=== PATIENT | male | born 1970 ===

== ENCOUNTER 2018-03-15 14:08 | Inpatient (IN) ==
[2018-03-15] MEDS ORDERED: traZODone 50 MG TABLET PO PRN (18:22)
[2018-03-15] MEDS ORDERED: DOCUSATE SODIUM 100 MG CAPSULE PO PRN (18:22)
[2018-03-15] MEDS ORDERED: ONDANSETRON 4 MG/2 ML VIAL IV PRN (18:22)
[2018-03-15] MEDS ORDERED: GLUCAGON 1 MG VIAL IM PRN (18:35)
[2018-03-15] MEDS: PIPERACILLIN/TAZOBACTAM 3,375 MG in SODIUM CHLORIDE 0.9% 100 ML IV SCH (18:42)
[2018-03-15 19:21] LABS: Basophils % 0.2 % (0.0-0.8); Eosinophils # 0.1 10*3/uL (0.0-0.87); Eosinophils % 0.2 % (0.00-10.9); Hemoglobin 10.1 GM/DL (14.0-18.0); Immature Granulocytes % 0.6 %; Immature Granulocytes Absolute 0.14 #; Lymphocytes # 1.9 10*3/uL (1.4-4.0); Lymphocytes % 8.6 % (21.2-54.2); Mean Corpuscular HGB Conc 33.7 GM/DL (32-36); Mean Corpuscular Hemoglobin 33 PG (27-34); Mean Corpuscular Volume 98.7 FL (87-102); Mean Platelet Volume 9.9 FL (9.6-12.0); Monocytes # 1.3 10*3/uL (0.11-0.8); Monocytes % 5.8 % (1.7-12.7); Neutrophils # 18.5 10*3/uL (1.4-7.4); Neutrophils % 84.6 % (38.7-73.9); Platelet Count 241 T/CUMM (130-400); Red Blood Count 3.04 MC/CUMM (3.8-5.5); Red Cell Distribution Width 11.8 % (9.3-17.3); White Blood Count 21.9 T/CUMM (4-12)
[2018-03-15 19:32] LABS: Calcium 8.3 MG/DL (8.5-10.1); Osmolality,Calculated 278.1 MOS/KG (273-304); Potassium 4.3 MMOL/L (3.5-5.1)
[2018-03-15 19:50] LABS: Lymphocytes 8 % (20-55); Platelet Estimate Normal; Segmented Neutrophils 91 % (50-85); Total Cells Counted 100
[2018-03-15 19:57] LABS: Hypochromasia Slight; Macrocytosis Slight
[2018-03-15] MEDS: INSULIN LISPRO 100 UNIT/ML SUBCUT SCH (20:44)
[2018-03-15] MEDS: ENOXAPARIN 40 MG/0.4 ML SYRINGE SUBCUT SCH (20:45)
[2018-03-15] MEDS: VANCOMYCIN INJ 1,500 MG in SODIUM CHLORIDE 0.9% 500 ML IV SCH (23:26)
[2018-03-16] MEDS: PIPERACILLIN/TAZOBACTAM 3,375 MG in SODIUM CHLORIDE 0.9% 100 ML IV SCH ×3 (02:00→18:33)
[2018-03-16 05:18] LABS: Basophils % 0.2 % (0.0-0.8); Eosinophils # 0.1 10*3/uL (0.0-0.87); Eosinophils % 0.7 % (0.00-10.9); Hemoglobin 8.4 GM/DL (14.0-18.0); Immature Granulocytes % 0.8 %; Immature Granulocytes Absolute 0.14 #; Lymphocytes # 1.9 10*3/uL (1.4-4.0); Lymphocytes % 10.4 % (21.2-54.2); Mean Corpuscular HGB Conc 33.6 GM/DL (32-36); Mean Corpuscular Hemoglobin 33 PG (27-34); Mean Corpuscular Volume 97.3 FL (87-102); Mean Platelet Volume 10.3 FL (9.6-12.0); Monocytes # 1.3 10*3/uL (0.11-0.8); Neutrophils # 14.8 10*3/uL (1.4-7.4); Neutrophils % 80.9 % (38.7-73.9); Platelet Count 196 T/CUMM (130-400); Red Blood Count 2.57 MC/CUMM (3.8-5.5); Red Cell Distribution Width 11.7 % (9.3-17.3); White Blood Count 18.3 T/CUMM (4-12)
[2018-03-16 05:52] LABS: Albumin 1.9 G/DL (3.4-5.0); Calcium 7.8 MG/DL (8.5-10.1); Osmolality,Calculated 280.8 MOS/KG (273-304); Potassium 3.9 MMOL/L (3.5-5.1); Thyroid Stimulating Hormone 1.46 uIU/ml (0.358-3.74); Total Protein 6.7 G/DL (6.4-8.3)
[2018-03-16] MEDS: INSULIN LISPRO 100 UNIT/ML SUBCUT SCH ×4 (09:22→20:26)
[2018-03-16] MEDS ORDERED: LIDOCAINE 1% 20 ML VIAL ONE (10:41)
[2018-03-16] MEDS ORDERED: MICROFIBRILLAR COLLAGEN POWDER 1 GM CAN TOP ONE (11:10)
[2018-03-16] MEDS ORDERED: MIDAZOLAM 2 MG/2 ML VIAL ONE (11:31)
[2018-03-16] MEDS: VANCOMYCIN INJ 1,500 MG in SODIUM CHLORIDE 0.9% 500 ML IV SCH ×2 (12:12→22:33)
[2018-03-16] MEDS: ASPIRIN EC 81 MG TABLET PO SCH (16:11)
[2018-03-16] MEDS: LISINOPRIL 10 MG TABLET PO SCH (16:11)
[2018-03-16] MEDS: metFORMIN 500 MG TABLET PO SCH (16:11)
[2018-03-16] MEDS: hydrALAZINE 20 MG/1 ML VIAL IV PRN (16:12)
[2018-03-16] MEDS: SIMVASTATIN 10 MG TABLET PO SCH (20:26)
[2018-03-16] MEDS: ENOXAPARIN 40 MG/0.4 ML SYRINGE SUBCUT SCH (20:27)
[2018-03-17] MEDS: PIPERACILLIN/TAZOBACTAM 3,375 MG in SODIUM CHLORIDE 0.9% 100 ML IV SCH ×3 (03:13→18:29)
[2018-03-17] MEDS: INSULIN LISPRO 100 UNIT/ML SUBCUT SCH ×4 (07:53→20:49)
[2018-03-17] MEDS: metFORMIN 500 MG TABLET PO SCH ×2 (08:11→17:28)
[2018-03-17] MEDS: LISINOPRIL 10 MG TABLET PO SCH (08:11)
[2018-03-17] MEDS: ASPIRIN EC 81 MG TABLET PO SCH (08:11)
[2018-03-17] MEDS: VANCOMYCIN INJ 1,500 MG in SODIUM CHLORIDE 0.9% 500 ML IV SCH (11:44)
[2018-03-17] MEDS: SIMVASTATIN 10 MG TABLET PO SCH (20:49)
[2018-03-17] MEDS: ENOXAPARIN 40 MG/0.4 ML SYRINGE SUBCUT SCH (20:49)
[2018-03-18] MEDS: VANCOMYCIN INJ 1,500 MG in SODIUM CHLORIDE 0.9% 500 ML IV SCH ×2 (00:06→11:29)
[2018-03-18] MEDS: hydrALAZINE 20 MG/1 ML VIAL IV PRN (00:44)
[2018-03-18] MEDS: PIPERACILLIN/TAZOBACTAM 3,375 MG in SODIUM CHLORIDE 0.9% 100 ML IV SCH ×3 (03:15→18:19)
[2018-03-18] MEDS: LISINOPRIL 10 MG TABLET PO SCH (08:10)
[2018-03-18] MEDS: INSULIN LISPRO 100 UNIT/ML SUBCUT SCH ×4 (08:11→20:58)
[2018-03-18] MEDS: ASPIRIN EC 81 MG TABLET PO SCH (08:11)
[2018-03-18] MEDS: metFORMIN 500 MG TABLET PO SCH ×2 (08:11→17:24)
[2018-03-18] MEDS: ENOXAPARIN 40 MG/0.4 ML SYRINGE SUBCUT SCH (20:56)
[2018-03-18] MEDS: SIMVASTATIN 10 MG TABLET PO SCH (20:59)
[2018-03-19] MEDS: PIPERACILLIN/TAZOBACTAM 3,375 MG in SODIUM CHLORIDE 0.9% 100 ML IV SCH ×3 (02:26→23:45)
[2018-03-19 06:23] LABS: Calcium 7.8 MG/DL (8.5-10.1); Osmolality,Calculated 280.3 MOS/KG (273-304); Potassium 3.6 MMOL/L (3.5-5.1)
[2018-03-19] MEDS: INSULIN LISPRO 100 UNIT/ML SUBCUT SCH ×4 (07:43→22:12)
[2018-03-19] MEDS: metFORMIN 500 MG TABLET PO SCH ×2 (07:44→17:55)
[2018-03-19] MEDS: LISINOPRIL 10 MG TABLET PO SCH (09:37)
[2018-03-19] MEDS: ASPIRIN EC 81 MG TABLET PO SCH (09:40)
[2018-03-19] MEDS ORDERED: DEXTROSE 50% 25 GM/50 ML VIAL IV ONE ×2 (10:25→10:27)
[2018-03-19] MEDS ORDERED: LIDOCAINE 1% 20 ML VIAL ONE (10:46)
[2018-03-19] MEDS ORDERED: PROPOFOL 200 MG/20 ML VIAL IV ONE (11:09)
[2018-03-19] MEDS ORDERED: MIDAZOLAM 2 MG/2 ML VIAL ONE (11:10)
[2018-03-19] MEDS: ENOXAPARIN 40 MG/0.4 ML SYRINGE SUBCUT SCH (22:11)
[2018-03-19] MEDS: SIMVASTATIN 10 MG TABLET PO SCH (22:12)
[2018-03-20] MEDS: PIPERACILLIN/TAZOBACTAM 3,375 MG in SODIUM CHLORIDE 0.9% 100 ML IV SCH ×3 (06:15→22:40)
[2018-03-20] MEDS: metFORMIN 500 MG TABLET PO SCH ×2 (08:38→18:52)
[2018-03-20] MEDS: INSULIN LISPRO 100 UNIT/ML SUBCUT SCH ×4 (08:38→21:20)
[2018-03-20] MEDS: ASPIRIN EC 81 MG TABLET PO SCH (08:39)
[2018-03-20] MEDS: LISINOPRIL 10 MG TABLET PO SCH (08:39)
[2018-03-20] MEDS: SIMVASTATIN 10 MG TABLET PO SCH (21:18)
[2018-03-20] MEDS: ENOXAPARIN 40 MG/0.4 ML SYRINGE SUBCUT SCH (21:20)
[2018-03-21] MEDS: PIPERACILLIN/TAZOBACTAM 3,375 MG in SODIUM CHLORIDE 0.9% 100 ML IV SCH (05:40)
[2018-03-21] MEDS: INSULIN LISPRO 100 UNIT/ML SUBCUT SCH ×4 (07:31→20:13)
[2018-03-21] MEDS: LISINOPRIL 10 MG TABLET PO SCH (08:56)
[2018-03-21] MEDS: metFORMIN 500 MG TABLET PO SCH ×2 (08:56→18:42)
[2018-03-21] MEDS: ASPIRIN EC 81 MG TABLET PO SCH (08:56)
[2018-03-21] MEDS: LEVOFLOXACIN INJ 500 MG in PREMIX 1 EACH IV SCH (11:14)
[2018-03-21] MEDS: SIMVASTATIN 10 MG TABLET PO SCH (20:31)
[2018-03-21] MEDS: ENOXAPARIN 40 MG/0.4 ML SYRINGE SUBCUT SCH (20:31)
[2018-03-21] MEDS: hydrALAZINE 20 MG/1 ML VIAL IV PRN (20:32)
[2018-03-22 06:45] LABS: Basophils % 0.4 % (0.0-0.8); Eosinophils # 0.3 10*3/uL (0.0-0.87); Eosinophils % 2.6 % (0.00-10.9); Hematocrit 26.5 VOL% (42.0-52.0); Hemoglobin 8.7 GM/DL (14.0-18.0); Immature Granulocytes % 0.8 %; Immature Granulocytes Absolute 0.09 #; Lymphocytes # 2.1 10*3/uL (1.4-4.0); Lymphocytes % 19.8 % (21.2-54.2); Mean Corpuscular HGB Conc 32.8 GM/DL (32-36); Mean Corpuscular Hemoglobin 32 PG (27-34); Mean Corpuscular Volume 97.8 FL (87-102); Mean Platelet Volume 10.3 FL (9.6-12.0); Monocytes # 0.5 10*3/uL (0.11-0.8); Monocytes % 4.9 % (1.7-12.7); Neutrophils # 7.6 10*3/uL (1.4-7.4); Neutrophils % 71.5 % (38.7-73.9); Platelet Count 299 T/CUMM (130-400); Red Blood Count 2.71 MC/CUMM (3.8-5.5); Red Cell Distribution Width 11.9 % (9.3-17.3); White Blood Count 10.6 T/CUMM (4-12)
[2018-03-22 07:10] LABS: Calcium 7.8 MG/DL (8.5-10.1); Osmolality,Calculated 282.3 MOS/KG (273-304); Potassium 3.7 MMOL/L (3.5-5.1)
[2018-03-22] MEDS: INSULIN LISPRO 100 UNIT/ML SUBCUT SCH ×4 (07:41→21:00)
[2018-03-22] MEDS: ASPIRIN EC 81 MG TABLET PO SCH (08:58)
[2018-03-22] MEDS: metFORMIN 500 MG TABLET PO SCH ×2 (09:00→18:01)
[2018-03-22] MEDS: LISINOPRIL 10 MG TABLET PO SCH (09:24)
[2018-03-22] MEDS: LEVOFLOXACIN INJ 500 MG in PREMIX 1 EACH IV SCH (11:10)
[2018-03-22] MEDS: DEXTROSE 50% 25 GM/50 ML SYRINGE IV PRN (16:38)
[2018-03-22] MEDS ORDERED: LIDOCAINE 1% 20 ML VIAL ONE (19:20)
[2018-03-22] MEDS ORDERED: PROPOFOL 200 MG/20 ML VIAL IV ONE (20:10)
[2018-03-22] MEDS ORDERED: fentaNYL 100 MCG/2 ML VIAL ONE (20:11)
[2018-03-22] MEDS ORDERED: SEVOFLURANE 1 UNIT/15 MINUTE INH ONE (20:11)
[2018-03-22] MEDS ORDERED: ONDANSETRON 4 MG/2 ML VIAL ONE (20:11)
[2018-03-22] MEDS ORDERED: MIDAZOLAM 2 MG/2 ML VIAL ONE (20:11)
[2018-03-22] MEDS ORDERED: ONDANSETRON 4 MG/2 ML VIAL IV PRN (20:16)
[2018-03-22] MEDS ORDERED: MEPERIDINE 25 MG/1 ML VIAL IV PRN (20:16)
[2018-03-22] MEDS: SIMVASTATIN 10 MG TABLET PO SCH (21:03)
[2018-03-22] MEDS: ENOXAPARIN 40 MG/0.4 ML SYRINGE SUBCUT SCH (21:04)
[2018-03-22] MEDS: MORPHINE 4 MG/1 ML VIAL IV PRN (22:33)
[2018-03-23] MEDS: MORPHINE 4 MG/1 ML VIAL IV PRN ×3 (02:35→20:06)
[2018-03-23] MEDS: ASPIRIN EC 81 MG TABLET PO SCH (08:44)
[2018-03-23] MEDS: LISINOPRIL 10 MG TABLET PO SCH (08:44)
[2018-03-23] MEDS: metFORMIN 500 MG TABLET PO SCH ×2 (08:44→17:10)
[2018-03-23] MEDS: INSULIN LISPRO 100 UNIT/ML SUBCUT SCH ×4 (10:29→20:02)
[2018-03-23] MEDS: LEVOFLOXACIN INJ 500 MG in PREMIX 1 EACH IV SCH (11:25)
[2018-03-23] MEDS: SIMVASTATIN 10 MG TABLET PO SCH (20:06)
[2018-03-23] MEDS: ENOXAPARIN 40 MG/0.4 ML SYRINGE SUBCUT SCH (20:06)
[2018-03-24] MEDS: hydrALAZINE 20 MG/1 ML VIAL IV PRN (04:48)
[2018-03-24] MEDS: DEXTROSE 50% 25 GM/50 ML SYRINGE IV PRN (08:04)
[2018-03-24] MEDS: INSULIN LISPRO 100 UNIT/ML SUBCUT SCH ×4 (08:15→21:18)
[2018-03-24] MEDS: ASPIRIN EC 81 MG TABLET PO SCH (08:16)
[2018-03-24] MEDS: LISINOPRIL 10 MG TABLET PO SCH (08:16)
[2018-03-24] MEDS: metFORMIN 500 MG TABLET PO SCH ×2 (08:16→18:20)
[2018-03-24] MEDS: LEVOFLOXACIN INJ 500 MG in PREMIX 1 EACH IV SCH (12:00)
[2018-03-24] MEDS ORDERED: LIDOCAINE 1% 20 ML VIAL ONE (12:32)
[2018-03-24] MEDS ORDERED: fentaNYL 100 MCG/2 ML VIAL ONE (13:57)
[2018-03-24] MEDS ORDERED: PROPOFOL 200 MG/20 ML VIAL IV ONE (13:57)
[2018-03-24] MEDS ORDERED: SEVOFLURANE 1 UNIT/15 MINUTE INH ONE (13:57)
[2018-03-24] MEDS ORDERED: ONDANSETRON 4 MG/2 ML VIAL ONE (13:58)
[2018-03-24] MEDS ORDERED: PHENYLEPHRINE 1 MG/10 ML SYRINGE IV ONE (13:58)
[2018-03-24] MEDS ORDERED: MIDAZOLAM 2 MG/2 ML VIAL ONE (13:58)
[2018-03-24] MEDS: MORPHINE 4 MG/1 ML VIAL IV PRN (17:12)
[2018-03-24] MEDS: ENOXAPARIN 40 MG/0.4 ML SYRINGE SUBCUT SCH (21:18)
[2018-03-24] MEDS: SIMVASTATIN 10 MG TABLET PO SCH (21:18)
[2018-03-25] MEDS: INSULIN LISPRO 100 UNIT/ML SUBCUT SCH ×4 (08:00→20:50)
[2018-03-25] MEDS: metFORMIN 500 MG TABLET PO SCH ×2 (09:00→19:32)
[2018-03-25] MEDS: LISINOPRIL 10 MG TABLET PO SCH (09:44)
[2018-03-25] MEDS: ASPIRIN EC 81 MG TABLET PO SCH (09:44)
[2018-03-25] MEDS: LEVOFLOXACIN INJ 500 MG in PREMIX 1 EACH IV SCH (12:24)
[2018-03-25] MEDS: PENICILLIN G POTASSIUM INJ 4,000,000 UNIT in SODIUM CHLORIDE 0.9% 100 ML IV SCH ×2 (19:31→20:56)
[2018-03-25] MEDS: CLINDAMYCIN INJ 900 MG in PREMIX 1 EACH IV SCH ×2 (19:31→23:25)
[2018-03-25] MEDS: ATORVASTATIN 10 MG TABLET PO SCH (20:48)
[2018-03-25] MEDS: ENOXAPARIN 40 MG/0.4 ML SYRINGE SUBCUT SCH (20:48)
[2018-03-26] MEDS: PENICILLIN G POTASSIUM INJ 4,000,000 UNIT in SODIUM CHLORIDE 0.9% 100 ML IV SCH ×6 (00:08→21:50)
[2018-03-26] MEDS: CLINDAMYCIN INJ 900 MG in PREMIX 1 EACH IV SCH ×4 (05:01→22:55)
[2018-03-26 06:05] LABS: Basophils % 0.4 % (0.0-0.8); Eosinophils # 0.2 10*3/uL (0.0-0.87); Eosinophils % 2.5 % (0.00-10.9); Hematocrit 24.5 VOL% (42.0-52.0); Hemoglobin 8.2 GM/DL (14.0-18.0); Immature Granulocytes Absolute 0.09 #; Lymphocytes # 2.2 10*3/uL (1.4-4.0); Mean Corpuscular HGB Conc 33.5 GM/DL (32-36); Mean Corpuscular Hemoglobin 33 PG (27-34); Mean Corpuscular Volume 98.4 FL (87-102); Monocytes # 0.5 10*3/uL (0.11-0.8); Monocytes % 5.6 % (1.7-12.7); Neutrophils # 6.1 10*3/uL (1.4-7.4); Neutrophils % 66.5 % (38.7-73.9); Platelet Count 282 T/CUMM (130-400); Red Blood Count 2.49 MC/CUMM (3.8-5.5); Red Cell Distribution Width 12.3 % (9.3-17.3); White Blood Count 9.2 T/CUMM (4-12)
[2018-03-26 06:15] LABS: Osmolality,Calculated 280.3 MOS/KG (273-304); Potassium 4.1 MMOL/L (3.5-5.1)
[2018-03-26] MEDS: INSULIN LISPRO 100 UNIT/ML SUBCUT SCH ×4 (09:28→21:54)
[2018-03-26] MEDS: LISINOPRIL 10 MG TABLET PO SCH (09:28)
[2018-03-26] MEDS: metFORMIN 500 MG TABLET PO SCH ×2 (09:29→16:21)
[2018-03-26] MEDS: ASPIRIN EC 81 MG TABLET PO SCH (09:29)
[2018-03-26] MEDS: LEVOFLOXACIN INJ 500 MG in PREMIX 1 EACH IV SCH (10:54)
[2018-03-26] MEDS: ENOXAPARIN 40 MG/0.4 ML SYRINGE SUBCUT SCH (21:52)
[2018-03-26] MEDS: ATORVASTATIN 10 MG TABLET PO SCH (21:52)
[2018-03-27] MEDS: PENICILLIN G POTASSIUM INJ 4,000,000 UNIT in SODIUM CHLORIDE 0.9% 100 ML IV SCH ×3 (00:54→08:56)
[2018-03-27] MEDS: CLINDAMYCIN INJ 900 MG in PREMIX 1 EACH IV SCH (07:05)
[2018-03-27] MEDS: ASPIRIN EC 81 MG TABLET PO SCH (08:56)
[2018-03-27] MEDS: LISINOPRIL 10 MG TABLET PO SCH (08:56)
[2018-03-27] MEDS: metFORMIN 500 MG TABLET PO SCH ×2 (08:56→18:04)
[2018-03-27] MEDS: INSULIN LISPRO 100 UNIT/ML SUBCUT SCH ×3 (08:59→16:23)
[2018-03-27] MEDS: LEVOFLOXACIN INJ 500 MG in PREMIX 1 EACH IV SCH (12:01)
[2018-03-27 16:32] VITALS: BP 115/72
== END 2018-03-27 18:00 | disposition home health service (06) | DRG 239 ==
LOC: SUATTDRO 16:17 → N.3E 16:17
PROVIDERS: ADMIT Internal Medicine; ATTEND Internal Medicine

== ENCOUNTER 2019-10-08 18:55 | Inpatient (IN) ==
[2019-10-08] MEDS ORDERED: PIPERACILLIN/TAZOBACTAM 3,375 MG in SODIUM CHLORIDE 0.9% 100 ML IV STA (20:51)
[2019-10-08 21:05] LABS: Basophils # 0.1 10*3/uL (0.0-0.2); Basophils % 0.4 % (0.0-0.8); Eosinophils # 1.3 10*3/uL (0.0-0.87); Hematocrit 36.2 VOL% (42.0-52.0); Hemoglobin 12.4 GM/DL (14.0-18.0); Immature Granulocytes % 0.3 %; Immature Granulocytes Absolute 0.03 #; Lymphocytes # 1.8 10*3/uL (1.4-4.0); Lymphocytes % 15.1 % (21.2-54.2); Mean Corpuscular HGB Conc 34.3 GM/DL (32-36); Mean Corpuscular Volume 98.9 FL (87-102); Mean Platelet Volume 10.7 FL (9.6-12.0); Monocytes % 5.4 % (1.7-12.7); Neutrophils % 67.8 % (38.7-73.9); Platelet Count 179 T/CUMM (130-400); Red Blood Count 3.66 MC/CUMM (3.8-5.5); Red Cell Distribution Width 13.1 % (9.3-17.3)
[2019-10-08] MEDS ORDERED: PIPERACILLIN/TAZOBACTAM 3,375 MG VIAL IV ONE (21:24)
[2019-10-08 21:29] LABS: Albumin 2.1 G/DL (3.4-5.0); Bilirubin,Total 0.4 MG/DL (0.2-1.0); Calcium 7.6 MG/DL (8.5-10.1); Osmolality,Calculated 293.1 MOS/KG (273-304); Total Protein 6.6 G/DL (6.4-8.3)
[2019-10-08 21:58] LABS: Eosinophils 18 % (0-10); Lymphocytes 11 % (20-55); Platelet Estimate Normal; Segmented Neutrophils 71 % (50-85); Total Cells Counted 100
[2019-10-08] MEDS ORDERED: ONDANSETRON 4 MG/2 ML VIAL IV PRN (22:12)
[2019-10-08] MEDS ORDERED: PIPERACILLIN/TAZOBACTAM 3,375 MG in SODIUM CHLORIDE 0.9% 100 ML IV SCH (22:12)
[2019-10-08] MEDS ORDERED: ACETAMINOPHEN 325 MG TABLET PO PRN (22:12)
[2019-10-08] MEDS ORDERED: VANCOMYCIN INJ 1,500 MG in SODIUM CHLORIDE 0.9% 500 ML IV PRN (22:25)
[2019-10-08] MEDS: LACTATED RINGERS 1,000 ML IV SCH (22:55)
[2019-10-08] MEDS: PANTOPRAZOLE 40 MG TABLET PO SCH (22:55)
[2019-10-09] MEDS ORDERED: VANCOMYCIN INJ 2,500 MG in SODIUM CHLORIDE 0.9% 500 ML IV ONE (02:00)
[2019-10-09] MEDS: PIPERACILLIN/TAZOBACTAM 3,375 MG in SODIUM CHLORIDE 0.9% 100 ML IV SCH ×3 (04:17→18:38)
[2019-10-09 07:50] LABS: Calcium 7.8 MG/DL (8.5-10.1)
[2019-10-09] MEDS: PANTOPRAZOLE 40 MG TABLET PO SCH (09:06)
[2019-10-09] MEDS ORDERED: LIDOCAINE 1% 20 ML VIAL ONE (10:00)
[2019-10-09] MEDS ORDERED: LIDOCAINE 2% 5 ML VIAL ONE (11:05)
[2019-10-09] MEDS ORDERED: propofoL 200 MG/20 ML VIAL IV ONE (11:05)
[2019-10-09] MEDS ORDERED: MIDAZOLAM 2 MG/2 ML VIAL ONE (11:06)
[2019-10-09] MEDS ORDERED: fentaNYL 100 MCG/2 ML VIAL ONE (11:06)
[2019-10-09] MEDS ORDERED: DEXMEDETOMIDINE 200 MCG/2 ML VIAL ONE (11:06)
[2019-10-09] MEDS: LACTATED RINGERS 1,000 ML IV SCH ×2 (11:43→17:41)
[2019-10-09] MEDS ORDERED: VANCOMYCIN INJ 2,000 MG in SODIUM CHLORIDE 0.9% 500 ML IV SCH (20:00)
[2019-10-10] MEDS: PIPERACILLIN/TAZOBACTAM 3,375 MG in SODIUM CHLORIDE 0.9% 100 ML IV SCH (03:18)
[2019-10-10] MEDS: PANTOPRAZOLE 40 MG TABLET PO SCH (11:48)
[2019-10-10 20:05] VITALS: BP 168/105
== END 2019-10-10 14:33 | disposition home or self-care (01) | DRG 617 ==
LOC: N.ED 18:55 → N.EDINP 21:01 → N.3E 22:00
PROVIDERS: ADMIT Surgery; ATTEND Surgery

== ENCOUNTER 2021-04-25 11:27 | Inpatient (IN) ==
[2021-04-25] MEDS ORDERED: ACETAMINOPHEN 325 MG TABLET PO PRN (12:07)
[2021-04-25] MEDS ORDERED: BISACODYL 5 MG TABLET PO PRN (12:07)
[2021-04-25] MEDS ORDERED: DEXTROSE 50% 25 GM/50 ML VIAL IV PRN (12:10)
[2021-04-25] MEDS ORDERED: GLUCAGON 1 MG VIAL IM PRN (12:10)
[2021-04-25 14:59] LABS: Basophils % 0.4 % (0.0-0.8); Eosinophils # 0.2 10*3/uL (0.0-0.87); Eosinophils % 2.3 % (0.00-10.9); Hematocrit 27.5 VOL% (42.0-52.0); Hemoglobin 9.1 GM/DL (14.0-18.0); Immature Granulocytes % 0.6 %; Immature Granulocytes Absolute 0.05 #; Lymphocytes # 1.8 10*3/uL (1.4-4.0); Lymphocytes % 21.2 % (21.2-54.2); Mean Corpuscular HGB Conc 33.1 GM/DL (32-36); Mean Corpuscular Volume 97.2 FL (87-102); Mean Platelet Volume 11.1 FL (9.6-12.0); Monocytes % 5.5 % (1.7-12.7); Platelet Count 110 T/CUMM (130-400); Red Blood Count 2.83 MC/CUMM (3.8-5.5); Red Cell Distribution Width 13.7 % (9.3-17.3); White Blood Count 8.3 T/CUMM (4-12)
[2021-04-25 15:24] LABS: % Iron Saturation 47.9 % (18-50); Ferritin 262.9 ng/mL (26-388)
[2021-04-25 15:37] LABS: Albumin 3.4 G/DL (3.4-5.0); Calcium 7.9 MG/DL (8.5-10.1); Osmolality,Calculated 338.4 MOS/KG (273-304); Potassium 4.6 MMOL/L (3.5-5.1)
[2021-04-25 15:57] LABS: Hepatitis B Core IgM Quant 0.15 Index; Hepatitis B Surface Ag Quant 0.84 Index; Hepatitis B Surface Ag Result Non-Reactive (NonReactive); Hepatitis C Virus Ab Quant 0.15 Index; Hepatitis C Virus Ab Result Non-Reactive (NonReactive)
[2021-04-25] MEDS: INSULIN LISPRO 100 UNIT/ML SUBCUT SCH (16:39)
[2021-04-26] MEDS: ONDANSETRON 4 MG/2 ML VIAL IV PRN (04:45)
[2021-04-26] MEDS ORDERED: propofoL 200 MG/20 ML VIAL IV ONE (08:31)
[2021-04-26] MEDS ORDERED: fentaNYL 100 MCG/2 ML VIAL ONE (08:31)
[2021-04-26] MEDS ORDERED: LIDOCAINE 2% 5 ML VIAL ONE (08:31)
[2021-04-26] MEDS ORDERED: MIDAZOLAM 2 MG/2 ML VIAL ONE (08:31)
[2021-04-26] MEDS ORDERED: LIDOCAINE 1%/EPI INJ 20 ML VIAL ONE (08:35)
[2021-04-26] MEDS ORDERED: BUPIVACAINE MPF 0.25% 30 ML VIAL ONE (08:35)
[2021-04-26] MEDS ORDERED: HEPARIN 5,000 UNIT/1 ML VIAL ONE ×2 (08:35→08:46)
[2021-04-26] MEDS ORDERED: SODIUM CHLORIDE 0.9% 250 ML IV SCH (09:30)
[2021-04-26] MEDS ORDERED: PHENYLEPHRINE 1 MG/10 ML SYRINGE IV ONE (09:49)
[2021-04-26] MEDS ORDERED: EPOETIN ALFA-EPBX 4,000 UNIT/ML VIAL IV PRN (10:17)
[2021-04-26] MEDS: INSULIN LISPRO 100 UNIT/ML SUBCUT SCH ×2 (10:29→17:33)
[2021-04-26] MEDS: PANTOPRAZOLE 40 MG TABLET PO SCH (10:30)
[2021-04-26] MEDS: SEVELAMER CARBONATE 800 MG TABLET PO SCH ×2 (11:33→17:37)
[2021-04-26] MEDS ORDERED: HEPARIN 10,000 UNIT/10 ML VIAL IV SCH (16:45)
[2021-04-27] MEDS: ONDANSETRON 4 MG/2 ML VIAL IV PRN ×3 (01:09→16:32)
[2021-04-27] MEDS: INSULIN LISPRO 100 UNIT/ML SUBCUT SCH ×2 (10:08→17:11)
[2021-04-27] MEDS: SEVELAMER CARBONATE 800 MG TABLET PO SCH ×3 (10:11→16:32)
[2021-04-27] MEDS: PANTOPRAZOLE 40 MG TABLET PO SCH (11:25)
[2021-04-28] MEDS: ONDANSETRON 4 MG/2 ML VIAL IV PRN (00:40)
[2021-04-28 03:42] VITALS: BP 118/61
[2021-04-28] MEDS: INSULIN LISPRO 100 UNIT/ML SUBCUT SCH (13:34)
[2021-04-28] MEDS: SEVELAMER CARBONATE 800 MG TABLET PO SCH ×2 (13:35→13:38)
[2021-04-28] MEDS: PANTOPRAZOLE 40 MG TABLET PO SCH (13:38)
== END 2021-04-28 14:16 | disposition home or self-care (01) | DRG 291 ==
LOC: N.5E 13:41
PROVIDERS: ADMIT Internal Medicine Nephrology; ATTEND Internal Medicine Nephrology

== ENCOUNTER 2021-08-09 12:11 | Inpatient (IN) ==
[2021-08-09] MEDS ORDERED: VANCOMYCIN INJ 1,000 MG in SODIUM CHLORIDE 0.9% 250 ML IV STA ×2 (14:44→15:09)
[2021-08-09 14:46] LABS: Basophils % 0.3 % (0.0-0.8); Eosinophils # 0.2 10*3/uL (0.0-0.87); Hematocrit 39.5 VOL% (42.0-52.0); Hemoglobin 12.7 GM/DL (14.0-18.0); Immature Granulocytes % 0.4 %; Immature Granulocytes Absolute 0.03 #; Lymphocytes # 1.4 10*3/uL (1.4-4.0); Lymphocytes % 19.5 % (21.2-54.2); Mean Corpuscular HGB Conc 32.2 GM/DL (32-36); Mean Corpuscular Volume 103.4 FL (87-102); Mean Platelet Volume 10.1 FL (9.6-12.0); Monocytes # 0.5 10*3/uL (0.11-0.8); Monocytes % 7.1 % (1.7-12.7); Neutrophils % 69.7 % (38.7-73.9); Platelet Count 151 T/CUMM (130-400); Red Blood Count 3.82 MC/CUMM (3.8-5.5); Red Cell Distribution Width 14.9 % (9.3-17.3); White Blood Count 7.3 T/CUMM (4-12)
[2021-08-09 15:06] LABS: Albumin 2.5 G/DL (3.4-5.0); Bilirubin,Total 0.6 MG/DL (0.20-1.00); Calcium 8.2 MG/DL (8.5-10.1); Osmolality,Calculated 289.5 MOS/KG (273-304); Potassium 3.2 MMOL/L (3.5-5.1); Total Protein 7.3 G/DL (6.4-8.2)
[2021-08-09] MEDS ORDERED: ACETAMINOPHEN 325 MG TABLET PO PRN (15:09)
[2021-08-09] MEDS ORDERED: BISACODYL 5 MG TABLET PO PRN (15:09)
[2021-08-09] MEDS ORDERED: GLUCAGON 1 MG VIAL IM PRN (15:09)
[2021-08-09] MEDS ORDERED: ONDANSETRON 4 MG/2 ML VIAL IV PRN (15:09)
[2021-08-09] MEDS ORDERED: 3 IV PRN (15:25)
[2021-08-09] MEDS ORDERED: VANCOMYCIN INJ 750 MG in SODIUM CHLORIDE 0.9% 250 ML IV PRN (15:36)
[2021-08-09] MEDS ORDERED: VANCOMYCIN INJ 2,500 MG in SODIUM CHLORIDE 0.9% 500 ML IV ONE (16:30)
[2021-08-09] MEDS ORDERED: methylPREDNISolone SOD SUC 125 MG/2 ML VIAL ONE (17:01)
[2021-08-09] MEDS ORDERED: diphenhydrAMINE 50 MG/1 ML VIAL ONE (17:01)
[2021-08-09] MEDS ORDERED: diphenhydrAMINE 50 MG/1 ML VIAL IV ONE (17:02)
[2021-08-09] MEDS ORDERED: methylPREDNISolone SOD SUC 125 MG/2 ML VIAL IV ONE (17:02)
[2021-08-09] MEDS ORDERED: FAMOTIDINE 20 MG/2 ML VIAL IV ONE ×3 (17:06→17:10)
[2021-08-09] MEDS ORDERED: SODIUM CHLORIDE 0.9% 1,000 ML IV STA (17:10)
[2021-08-09] MEDS ORDERED: EPINEPHrine 1 MG/ML VIAL IM ONE (17:18)
[2021-08-09] MEDS: INSULIN LISPRO 100 UNIT/ML SUBCUT SCH ×2 (17:26→22:32)
[2021-08-09] MEDS: SEVELAMER CARBONATE 800 MG TABLET PO SCH (17:27)
[2021-08-09] MEDS ORDERED: ENOXAPARIN 40 MG/0.4 ML SYRINGE SUBCUT SCH (21:00)
[2021-08-10 04:54] LABS: Hematocrit 32.9 VOL% (42.0-52.0); Hemoglobin 10.8 GM/DL (14.0-18.0); Immature Granulocytes % 0.5 %; Immature Granulocytes Absolute 0.05 #; Lymphocytes # 0.6 10*3/uL (1.4-4.0); Lymphocytes % 5.5 % (21.2-54.2); Mean Corpuscular HGB Conc 32.8 GM/DL (32-36); Mean Corpuscular Volume 101.9 FL (87-102); Monocytes # 0.1 10*3/uL (0.11-0.8); Monocytes % 1.3 % (1.7-12.7); Neutrophils % 92.7 % (38.7-73.9); Platelet Count 140 T/CUMM (130-400); Red Blood Count 3.23 MC/CUMM (3.8-5.5); Red Cell Distribution Width 14.7 % (9.3-17.3)
[2021-08-10 05:19] LABS: Lymphocytes 7 % (20-55); Platelet Estimate Adequate; Total Cells Counted 100
[2021-08-10] MEDS ORDERED: fentaNYL 100 MCG/2 ML VIAL ONE (10:31)
[2021-08-10] MEDS ORDERED: SODIUM CHLORIDE 0.9% 250 ML IV ONE (10:31)
[2021-08-10] MEDS ORDERED: ETOMIDATE 40 MG/20 ML VIAL IV ONE (10:31)
[2021-08-10] MEDS ORDERED: propofoL 200 MG/20 ML VIAL IV ONE (10:31)
[2021-08-10] MEDS ORDERED: MIDAZOLAM 2 MG/2 ML VIAL ONE (10:31)
[2021-08-10] MEDS ORDERED: BUPIVACAINE MPF 0.25% 10 ML VIAL ONE (10:56)
[2021-08-10 11:11] LABS: Calcium 7.9 MG/DL (8.5-10.1); Osmolality,Calculated 302.7 MOS/KG (273-304); Potassium 3.9 MMOL/L (3.5-5.1)
[2021-08-10] MEDS ORDERED: SODIUM CHLORIDE 0.9% 250 ML IV SCH (11:30)
[2021-08-10] MEDS: INSULIN LISPRO 100 UNIT/ML SUBCUT SCH ×3 (13:23→20:56)
[2021-08-10] MEDS: SEVELAMER CARBONATE 800 MG TABLET PO SCH ×2 (13:24→17:59)
[2021-08-10] MEDS: PIPERACILLIN/TAZOBACTAM 3,375 MG in SODIUM CHLORIDE 0.9% 100 ML IV SCH ×2 (15:54→23:16)
[2021-08-10] MEDS: LINEZOLID INJ 600 MG/300 ML PREMIX IV SCH (20:56)
[2021-08-11 05:47] LABS: Basophils % 0.1 % (0.0-0.8); Eosinophils % 0.2 % (0.00-10.9); Hematocrit 31.1 VOL% (42.0-52.0); Immature Granulocytes % 0.6 %; Immature Granulocytes Absolute 0.07 #; Lymphocytes # 1.7 10*3/uL (1.4-4.0); Lymphocytes % 14.2 % (21.2-54.2); Mean Corpuscular HGB Conc 32.2 GM/DL (32-36); Mean Platelet Volume 10.1 FL (9.6-12.0); Monocytes # 0.5 10*3/uL (0.11-0.8); Monocytes % 4.5 % (1.7-12.7); Neutrophils % 80.4 % (38.7-73.9); Platelet Count 167 T/CUMM (130-400); Red Blood Count 2.99 MC/CUMM (3.8-5.5); Red Cell Distribution Width 14.7 % (9.3-17.3); White Blood Count 11.8 T/CUMM (4-12)
[2021-08-11 06:05] LABS: Calcium 8.2 MG/DL (8.5-10.1); Osmolality,Calculated 311.8 MOS/KG (273-304); Potassium 3.5 MMOL/L (3.5-5.1)
[2021-08-11] MEDS: INSULIN LISPRO 100 UNIT/ML SUBCUT SCH ×3 (07:38→11:42)
[2021-08-11] MEDS: SEVELAMER CARBONATE 800 MG TABLET PO SCH ×2 (08:21→11:40)
[2021-08-11] MEDS: LINEZOLID INJ 600 MG/300 ML PREMIX IV SCH (08:21)
[2021-08-11] MEDS: PIPERACILLIN/TAZOBACTAM 3,375 MG in SODIUM CHLORIDE 0.9% 100 ML IV SCH (09:30)
[2021-08-11 11:40] VITALS: BP 142/73
== END 2021-08-11 13:05 | disposition home health service (06) | DRG 255 ==
LOC: EDBD → EDUNIT# → N.ED 12:11 → N.3E 15:09 → SUATTDRO 15:09 → N.3E 18:43
PROVIDERS: ADMIT Internal Medicine Geriatric Medicine; ATTEND Family Medicine